=== PATIENT | female | born 2000 | race Caucasian/White ===

== ENCOUNTER 2023-04-21 15:40 | Emergency (ER) | payer SELFPAY ==
--- NOTE | 2023-04-22 09:06 | PC.NURSE ---
Patient left without being seen because she was on her lunch break and wait was too long, said she would come back later.
== END 2023-04-21 15:41 | disposition left against medical advice (07) ==
LOC: EXPTROY 15:49
PROVIDERS: Emergency Provider Nurse Practitioner Family
DX: Z53.21 Procedure and treatment not carried out due to patient leaving prior to being seen by health care provider (principal)
CPT/HCPCS: 99199